=== PATIENT | male | born 1935 | race Caucasian/White ===

== ENCOUNTER 2019-07-12 05:45 | Inpatient (IN) | payer MEDICARE, OTHER ==
[2019-06-27 09:04] LABS: ABSOLUTE BASOPHILS 0.1 thou/uL (0.0-0.2); ABSOLUTE EOSINOPHILS 0.2 thou/uL (0.0-0.7); ABSOLUTE LYMPHOCYTES 1.9 thou/uL (0.8-5.3); ABSOLUTE MONOCYTES 0.6 thou/uL (0.0-1.2); ABSOLUTE NEUTROPHILS 3.2 thou/uL (1.6-8.1); BASOPHILS 1.5 %; EOSINOPHILS 2.9 %; HEMOGLOBIN 15.1 gm/dL (14.0-18.0); MCH 31.3 pg (26.0-34.0); MCHC 34.3 g/dL (28.0-37.0); MCV 91.2 fL (80.0-100.0); MONOCYTES 9.7 %; MPV 6.8 fl. (7.2-11.1); NUCLEATED RBCS 0 /100WBC; PLATELET COUNT* 223 thou/uL (150-400); POLYS 53.9 %; RBC 4.82 mil/uL (4.50-6.00); WBC 5.9 thou/uL (4.0-11.0)
[2019-06-27 09:09] LABS: APTT 26.4 Seconds (25.0-31.3); PROTIME 10.4 Seconds (9.20-11.50)
[2019-06-27 10:18] LABS: ESR (SEDRATE) 14 mm/hr (0-20)
--- NOTE | 2019-06-27 10:31 | EKG ---
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
[2019-06-28 02:10] LABS: GLYCOHEMOGLOBIN (HGB A1C) 5.6 % (4.8-5.6)
[~2019-07-12] VITALS: Ht 180.3 cm; Wt 102.1 kg
[~2019-07-12 05:45] MED LIST: LEVO-T100 MCG PO; LIPITOR 20 MG T20 M1 PO; NEURONTIN300 MG PO; NORVASC5 MG PO; PRILOSEC OTC20 MG PO; SYMBICORT160 MCG/4. INH; TESSALON PERLE100 MG PO; VITAMIN E1000 UNI2 PO
[2019-07-12 06:30] VITALS: BP 133/75
[2019-07-12 11:10] LABS: HEMOGLOBIN 12.8 gm/dL (14.0-18.0)
--- NOTE | 2019-07-12 12:45 | NUR ---
PATIENT REC'D FROM PACU. REPORT REC'D. PATIENT AWAKENS, REQUESTING WATER. CAPNO ON, SATS NOTED 93%. RATING SHOULDER PAIN 2/10 AT THIS TIME. FAMILY/FRIENDS IN TO SEE PATIENT. 97.8-68-12, 101/67, 93-95% 3L/NC. IV CATH SITE NOTED WNL. NOTED OCCA COUGH, NO PROD AT THIS TIME. ORIENTED TO RM/CALL LIGHT. DENIES CURRENT NEEDS. SURG SITE DRSG NOTED CDI. ~TJRN
--- NOTE | 2019-07-12 15:22 | NUR ---
CM ASSESSMENT: MET WITH PT AND IN ROOM. PT LIVES WITH HIS AND IS INDEPENDENT IN ADLS. PT WILL BE IN A SLING FOR 2 WEEKS. IN 2 WEEKS HE PLANS ON DOING OUTPT THERAPY AT [facility]. WILL CALL PHARMACY AND CHECK DELVALLE OF ELIQUIS
[2019-07-12] MEDS ORDERED: ELIQUIS2.5 MG PO (15:30)
--- NOTE | 2019-07-12 15:35 | NUR ---
DELVALLE FOR ELIQUIS $231.20. PT NOTIFIED AND STATES HE CANNOT AFFORD MEDICATION. ORTHO TO BE NOTIFIED
[2019-07-12 16:25] VITALS: BP 114/68
[2019-07-12 16:30] LABS: HEMATOCRIT 39.5 % (42.0-52.0); HEMOGLOBIN 13.3 gm/dL (14.0-18.0); MCHC 33.6 g/dL (28.0-37.0); MCV 92.2 fL (80.0-100.0); MPV 7.5 fl. (7.2-11.1); NUCLEATED RBCS 0 /100WBC; PLATELET COUNT* 167 thou/uL (150-400); RBC 4.28 mil/uL (4.50-6.00); RDW-CV 14.3 % (10.5-14.5); WBC 10.3 thou/uL (4.0-11.0)
[2019-07-12 16:43] LABS: CALCIUM 8.5 mg/dL (8.5-10.1); CREATININE 1.3 mg/dL (0.6-1.3); POTASSIUM 5.3 mmol/L (3.5-5.1); TOTAL BILIRUBIN 0.3 mg/dL (<0.1-1.0); TOTAL PROTEIN 6.2 g/dL (6.4-8.2)
[2019-07-12 17:03] LABS: ABSOLUTE LYMPHOCYTES 0.5 thou/uL (0.8-5.3); ABSOLUTE MONOCYTES 0.2 thou/uL (0.0-1.2); ABSOLUTE NEUTROPHILS 9.6 thou/uL (1.6-8.1); ATYPICAL LYMPHS 1 %; PLATELET ESTIMATE ADEQUATE
[2019-07-12 20:00] VITALS: BP 114/70
[2019-07-13] VITALS: BP 120/75
[2019-07-13 03:29] LABS: HEMATOCRIT 35.9 % (42.0-52.0); HEMOGLOBIN 12.2 gm/dL (14.0-18.0); MCH 31.4 pg (26.0-34.0); MCV 92.5 fL (80.0-100.0); MPV 7.1 fl. (7.2-11.1); RBC 3.88 mil/uL (4.50-6.00); RDW-CV 14.1 % (10.5-14.5); WBC 8.6 thou/uL (4.0-11.0)
[2019-07-13 03:40] LABS: CREATININE 1.2 mg/dL (0.6-1.3); MAGNESIUM 1.6 mg/dL (1.8-2.4); POTASSIUM 5.2 mmol/L (3.5-5.1)
[2019-07-13 03:50] VITALS: BP 139/68
--- NOTE | 2019-07-13 04:18 | NUR ---
ASSUMED PATIENT CARE AT 1900. PATIENT ALERT AND ORIENTED TIMES FOUR. COMPLAINTS OF PAIN IN SURGICAL JOINT. SEE MAR FOR MED ADMINISTRATION. PATIENT IS STILL HAVING SOME DIFFICULTY URINATING. DOES NOT WANT TO HAVE A CATH FOR RELIEF. STATES " I AM DRIBBLING SOME" DRESSING TO SHOULDER IS C/D/I. SLING IN PLACE. 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
[2019-07-13 08:20] VITALS: BP 114/71
[2019-07-13 10:30] VITALS: BP 114/71
[2019-07-13 12:18] LABS: CREATININE 1.5 mg/dL (0.6-1.3); MAGNESIUM 1.8 mg/dL (1.8-2.4); POTASSIUM 4.7 mmol/L (3.5-5.1)
[2019-07-13] MEDS ORDERED: ELIQUIS5 MG PO (14:09)
[2019-07-13] MEDS ORDERED: COLACE100 MG PO (14:10)
[2019-07-13] MEDS ORDERED: ROXICODONE5 M2 PO (14:13)
--- NOTE | 2019-07-13 14:44 | NUR ---
FAXED INFORMATION TO [facility] FOR HH AND HOME O2. AWAITING CALL BACK FOR APPROVAL.
--- NOTE | 2019-07-13 17:40 | NUR ---
PT DISCHARGED AND LEFT UNIT ABOUT 1740. DRESSING C/D/I. HOME HEALTH SET UP. WORKING ON GETTING HOME O2. OXYGEN WAS NOT DELIVERED FOR PT BEFORE DISCHARGE. PT WAS EDUCATED ON RISKS ABOUT LEAVING FACILITY WITHOUT OXYGEN AND PT REFUSED TO STAY ANY LONGER WHILE WAITING FOR THE OXYGEN TO BE DELIVERED. SLING IN PLACE. PAPER SCRIPTS AND CARE NOTES SENT WITH PT. PERESONAL ITEMS SENT WITH PT. IV OUT. PT STABLE UPON DISCHARGE.
--- NOTE | 2019-07-17 16:20 | OP ---
[address] [address] OPERATIVE REPORT Name: DAYO BRANTLEY JR Room: [address]#: [id number] Admission: 07/12/19 Attend Phys: Perla Manriquez Discharge: 07/13/19 Date of : 39 Report #: [id number] THIS REPORT FOR: //name// cc: Trice Wood D.O., C. Mark D.O. THIS REPORT FOR: //name// CC: Ray Vernon DICTATED BY: Jd Herring DO DATE OF SERVICE: 07/12/2019 PREOPERATIVE DIAGNOSIS: Left severe rotator cuff arthropathy. POSTOPERATIVE DIAGNOSIS: Left severe rotator cuff arthropathy. SURGERY PERFORMED: Left reverse total shoulder arthroplasty with the Tornier Aequalis system with the following implant sizes: Size 29 mm threaded baseplate, 42 mm centered glenoid, a +6 mm polyethylene insert and a size 3B humeral stem and 2 baseplate locking screws measuring 23 mm and 26 mm. SURGEON: Ray Mooney DO APPLICATION ENGINEER: Jd Herring DO ANESTHESIA: General endotracheal anesthetic. ANTIBIOTICS: 2 g of Ancef given IV 30 minutes prior to incision. ESTIMATED BLOOD LOSS: 200 mL. COMPLICATIONS: None. DRAINS: None. CONDITION: Stable to PACU. INDICATIONS FOR PROCEDURE: The patient is a pleasant 84-year-old male who has been followed in the outpatient orthopedic clinic for ongoing left shoulder pain, has been refractory to conservative measures for greater than 3 months and was diagnosed with left shoulder rotator cuff arthropathy on physical exam as well as x-rays. He was subsequently recommended to undergo a left reverse total shoulder arthroplasty and therefore the risks, benefits, treatment options, [address] [address] OPERATIVE REPORT Name: DAYO BRANTLEY JR Room: [address]#: [id number] Admission: 07/12/19 Attend Phys: Perla Manriquez Discharge: 07/13/19 Date of : 39 Report #: [id number] alternatives, and indications were discussed with the patient. Risks include but not limited to damage to surrounding neurovascular structures, continued pain, continued bleeding, need for repeat surgery, iatrogenic fracture, instability, DVT, PE, as well as inherent complications of anesthesia. The patient assumed the risks and wished to proceed with surgery. DESCRIPTION OF PROCEDURE: The patient was seen in the preoperative holding area where the consent was obtained and signed. Left upper extremity was marked and initialed. The patient was transferred back to the operative suite and placed supine on the operating room table. He was given the benefit of endotracheal anesthetic and then placed him into a modified beach chair position with angulation of approximately 30 degrees. Left upper extremity was then sterilely prepped with a Hibiclens scrub, alcohol rinse and ChloraPrep x2 and then draped free in normal sterile fashion. Timeout was then held indicating appropriate patient, procedure to be performed, operative side, operative surgeon, preoperative antibiotics and all relevant imaging was displayed. All attendance was in agreeance. Next, surgery began with an incision over the left anterior aspect of the left upper extremity just lateral to the coracoid and extending approximately 12 cm over the anterior aspect of the proximal humerus. Incision was made with a 10 blade scalpel through the skin and subcutaneous tissues and then sharp dissection was carried down with electrocautery through the subcutaneous fat to the level of the deltoid fascia. Next, the cephalic vein was identified and the interval between the deltoid and pectoralis major was identified. Next, the cephalic vein was then mobilized laterally with the deltoid and then all subdeltoid adhesions were subsequently freed up to allow for a Block deltoid retractor to be placed. Block retractor was then subsequently placed and the biceps tendon was identified within the bicipital groove just superior to the pectoralis major tendon. Biceps tendon sheath was then incised superiorly to the base of the supraglenoid tubercle. Next, the biceps was tenotomized at the superior aspect of the pec major tendon. The excess tendon was then subsequently removed. Next, the conjoined tendon was identified and the lateral border was freed up with Metzenbaum scissors to allow retraction with [place] retractor gently with care to protect the musculocutaneous nerve. Next, the shoulder was externally rotated. The subscapularis muscle was peeled off the lesser tuberosity until the humeral head was then subsequently dislocated. Next, the intramedullary guide was then subsequently placed. The cutting guide was placed in appropriate position referencing 30 degrees of retroversion to the epicondylar access and then the humeral head cut was then subsequently made. Next, the humerus was then prepared sequentially utilizing appropriate reamers until a 3B was determined to be the appropriate size. Next, the inferior capsule was peeled off the neck of the humerus to allow adequate exposure of the glenoid and then subsequently the labrum was then excised from the glenoid 360 degrees and then a small amount of inferior capsule was released off the inferior portion of the glenoid with care to protect the axillary nerve. Tug test was then subsequently performed and axillary nerve was deemed to be intact. Next, [place] [address] OPERATIVE REPORT Name: BRANTLEYDAYO OJEDA Deena Room: [address]#: [id number] Admission: 07/12/19 Attend Phys: Perla Manriquez Discharge: 07/13/19 Date of : 39 Report #: [id number] placed and then the guidewire was placed into the appropriate position on the glenoid followed by appropriate reamers until the glenoid was adequately prepared. Next, the opening drill for the threaded baseplate was then performed over the guidewire. Guidewire was subsequently removed and then the hole was then tapped and then the 29 mm threaded baseplate was placed into appropriate position with adequate bite and seating. Next, the 23 mm and 26 mm locking screws were drilled and then placed into appropriate position angling towards the coracoid base. Next, the size 42 mm centered baseplate head was placed in appropriate position, malleted to see the Chen taper and then locked with a locking screw in alternating fashion. Next, attention was given back to the humerus where the +6 polyethylene trial was placed in appropriate position and then trial was then performed with adequate stability and deltoid tension with full range of motion able to be achieved. Next, trial humeral components were subsequently removed and then the final implants were assembled matching the appropriate eccentricity on the humeral head. Next, the humeral canal was then thoroughly irrigated and the final implants were then malleted in appropriate position and a +6 mm trial polyethylene spacer was trialed again with appropriate tensioning and stability. Therefore, the trial spacer was then subsequently removed and the final polyethylene was placed onto the cleansed and dried tray and malletted into position and firmly seated. Next, the humerus was relocated and the arm has had full range of motion with adequate stability. Therefore, the wound was then thoroughly irrigated and then the rotator interval was loosely closed utilizing 0 Vicryl in a figure-of-8 interrupted fashion followed by skin closure with 2-0 Vicryl in inverted interrupted fashion followed by running 3-0 Stratafix subcuticular stitch Exofin glue and Mepilex dressing. The arm was placed into a sling. Then, anesthesia was reversed and the patient was transferred back to PACU in normal stable condition. Dr. Mooney was present for all critical aspects of the case. <ELECTRONICALLY SIGNED> By: Jose Wyman DO 07/17/19 1620 1520 Yurilan Carson Mooney DO /nt
== END 2019-07-13 17:44 | disposition home health service (06) | DRG 483 ==
LOC: M.TBA 05:45 → M.ORTHSURG 05:45 → M.PRE 06:35 → M.ORTHSURG 12:40
PROVIDERS: Family Medicine; Orthopaedic Surgery; ADMIT Internal Medicine
PROC: 0RRK00Z Replacement of Left Shoulder Joint with Reverse Ball and Socket Synthetic Substitute, Open Approach (ICD-10-PCS; principal; 2019-07-12)
DX: M19.012 Primary osteoarthritis, left shoulder (principal); E78.5 Hyperlipidemia, unspecified; I10 Essential (primary) hypertension; I95.9 Hypotension, unspecified; E86.9 Volume depletion, unspecified; E03.9 Hypothyroidism, unspecified; M75.102 Unspecified rotator cuff tear or rupture of left shoulder, not specified as traumatic; E83.42 Hypomagnesemia; Z96.1 Presence of intraocular lens; E87.5 Hyperkalemia; Z96.651 Presence of right artificial knee joint; Z96.642 Presence of left artificial hip joint; Z82.49 Family history of ischemic heart disease and other diseases of the circulatory system; Z87.891 Personal history of nicotine dependence; Z72.89 Other problems related to lifestyle; Z98.49 Cataract extraction status, unspecified eye; Z85.818 Personal history of malignant neoplasm of other sites of lip, oral cavity, and pharynx